=== PATIENT | male | born 1940 | race Caucasian/White ===

== ENCOUNTER 2018-02-17 22:13 | Emergency (ER) | payer MEDICARE, OTHER ==
--- NOTE | 2018-02-17 22:36 | Emergency Department Record ---
History of Present Illness - General Chief complaint: Extremity Problem Stated complaint: RT RING FINGER PAIN Time Seen by Provider: 02/17/18 22:33 Source: Patient Mode of Arrival: Ambulatory - History of Present Illness Initial comments: Patient jammed his right ring finger when he tripped on a boat. He denies other injury. MD Complaint: Extremity pain Onset/Timin -: Hour(s) Location: Right Radiation: Distal Quality: Aching Consistency: Constant Improves with: Immobilization Worsens with: Palpation Associated Symptoms: Denies other symptoms - Related Data Home Medications Medication Instructions Recorded Confirmed Last Taken Finasteride [Propecia] 1 mg PO DAILY 02/17/18 02/17/18 Unknown Lansoprazole [Prevacid] 30 mg PO DAILY 02/17/18 02/17/18 Unknown Lisinopril [Zestril] 5 mg PO DAILY 02/17/18 02/17/18 Unknown Multivitamin [Multi-Vitamin Daily] 1 each PO DAILY 02/17/18 02/17/18 Unknown Pollock-3/Dha/Epa/Fish Oil [Fish Oil 1 each PO DAILY 02/17/18 02/17/18 Unknown 500 mg Softgel] Allergies Allergy/AdvReac Type Severity Reaction Status Date / Time No Known Drug Allergies Allergy Verified 02/17/18 22:20 Travel Screening - Travel/Exposure Within Last 30 Days Have you traveled within the last 30 days?: No Review of Systems Reviewed: No additional complaints except as noted below Constitutional: Reports: As per HPI. Denies: Chills, Fever, Malaise, Night sweats, Weakness, Weight change Eyes: Reports: As per HPI. Denies: Eye discharge, Eye pain, Photophobia, Vision change ENT: Reports: As per HPI. Denies: Congestion, Dental pain, Ear pain, Epistaxis , Hearing loss, Throat pain Respiratory: Reports: As per HPI. Denies: Cough, Dyspnea, Hemoptysis, Stridor, Wheezes Cardiovascular: Reports: As per HPI. Denies: Arrhythmia, Chest pain, Dyspnea on exertion, Edema, Murmurs, Orthopnea, Palpitations, Paroxysmal nocturnal dyspnea, Rheumatic Fever, Syncope Endocrine: Reports: As per HPI. Denies: Fatigue, Heat or cold intolerance, Polydipsia, Polyuria Gastrointestinal: Reports: As per HPI. Denies: Abdominal pain, Constipation, Diarrhea, Hematemesis, Hematochezia, Melena, Nausea, Vomiting Genitourinary: Reports: As per HPI. Denies: Dysuria, Frequency, Hematuria, Incontinence, Retention, Testicular pain, Testicular mass, Urgency Musculoskeletal: Reports: As per HPI. Denies: Arthralgia, Back pain, Gout, Joint swelling, Myalgia, Neck pain Skin: Reports: As per HPI. Denies: Bruising, Change in color, Change in hair/ nails, Lesions, Pruritus, Rash Neurological: Reports: As per HPI. Denies: Abnormal gait, Confusion, Headache, Numbness, Paresthesias, Seizure, Tingling, Tremors, Vertigo, Weakness Psychiatric: Reports: As per HPI. Denies: Anxiety, Auditory hallucinations, Depression, Homicidal thoughts, Suicidal thoughts, Visual hallucinations Hematological/Lymphatic: Reports: As per HPI. Denies: Anemia, Blood Clots, Easy bleeding, Easy bruising, Swollen glands Past Medical History - SOCIAL HISTORY Smoking Status: Never smoker Alcohol Use: Occasional Drug Use: None - RESPIRATORY Hx Respiratory Disorders: No - CARDIOVASCULAR Hx Cardio Disorders: Yes Hx Hypertension: Yes Comment:: HLD - NEURO Hx Neuro Disorders: No - GI Hx GI Disorders: Yes Hx Reflux: Yes - Hx Genitourinary Disorders: Yes Hx Prostate Problems: Yes - ENDOCRINE Hx Endocrine Disorders: No - MUSCULOSKELETAL Hx Musculoskeletal Disorders: Yes - PSYCH Hx Psych Problems: No - HEMATOLOGY/ONCOLOGY Hx Hematology/Oncology Disorders: No Family Medical History Any Significant Family History?: No Family Hx Comment (NOT TO BE USED IN PLACE OF ITEMS BELOW): denies Physical Exam - General General Appearance: Alert, Oriented x3, Cooperative, No acute distress - Head Head exam: Normal inspection - Eye Eye exam: Normal appearance, PERRL Pupils: Normal accommodation - ENT ENT exam: Normal exam, Normal external ear exam Ear exam: Normal external inspection. negative: External canal tenderness Nasal Exam: Normal inspection. negative: Discharge, Sinus tenderness Mouth exam: Normal external inspection, Tongue normal Teeth exam: Normal inspection. negative: Dental caries Throat exam: Normal inspection. negative: Tonsillar erythema, Tonsillar exudate - Neck Neck exam: Normal inspection, Full ROM. negative: Tenderness - Respiratory Respiratory exam: Normal lung sounds bilaterally. negative: Respiratory distress - Cardiovascular Cardiovascular Exam: Regular rate, Normal rhythm - GI/Abdominal GI/Abdominal exam: Soft. negative: Tenderness - Rectal Rectal exam: Deferred - exam: Deferred - Extremities Extremities exam: Normal inspection, Full ROM, Normal capillary refill, Tenderness (right ring finger with possible dislocation at PIP.) - Back Back exam: Reports: Normal inspection, Full ROM. Denies: Muscle spasm, Rash noted, Tenderness - Neurological Neurological exam: Alert, Normal gait, Oriented X3, Reflexes normal - Psychiatric Psychiatric exam: Normal affect, Normal mood - Skin Skin exam: Dry, Intact, Normal color, Warm Course Vital Signs 02/17/18 22:21 Temperature 97.8 F Pulse Rate [ 71 Pulse Ox Probe] Respiratory 24 Rate Blood Pressure 137/86 [Left Arm] Pulse Ox 99 - Reevaluation(s) Reevaluation #1: Patient declined tylenol or ibuprofen. 02/17/18 22:35 Reevaluation #2: 02/17/18 23:09 PROCEDURE; In line traction easily reduced the 4th digit PIP dislocation. Patient tolerated well. Sent to xray for post reduction film. Carlos taped and discharged home with PCP follow up. Medical Decision Making - Data Complexity MDM Data: X-Ray Ordered and/or Reviewed (Initial xray shows dislocation of PIP of 4th digit, no fractures seen; Post reduction confirms, no fx seen. Per ED physician.) Disposition Disposition: Discharge Clinical Impression: Dislocated finger Qualifiers: Encounter type: initial encounter Qualified Code(s): S63.259A - Unspecified dislocation of unspecified finger, initial encounter Disposition: Home, Self-Care Condition: (1) Good Instructions: Finger Dislocation (ED) Additional Instructions: Carlos tape 5-7 days. Tylenol or ibuprofen as directed as needed for pain. Ice. Elevate first 48 hours. Follow up with your PCP 5-7 days. No use of right hand 5 days. Forms: Patient Portal Access Quality - Quality Measures Quality Measures: N/A - Blood Pressure Screening Does Patient Have Any of the Following: No Blood Pressure Classification: Pre-Hypertensive BP Reading Systolic Measurement: 137 Diastolic Measurement: 86 Screening for High Blood Pressure: Patient Exclusion, Hx of HTN [[id number]]
--- NOTE | 2018-02-19 13:44 | RADIOLOGY REPORT ---
EXAM: RIGHT HAND HISTORY: JAMMED RING FINGER OF HAND WHEN FELL AGAINST A BOAT. TECHNIQUE: Three views of the right hand were obtained. Comparison: None. Encounter: Initial. FINDINGS: There is a dislocation at the PIP joint of the fourth finger with the middle phalanx dislocated posteriorly and is slightly in an ulnar direction compared with the proximal phalanx. Faint round calcification just anterior to the base of the middle phalanx on the lateral view is not well seen on the other views and with its round configuration seems a bit atypical for a small associated fracture fragment and is probably chronic in nature. No other fracture or dislocation of the right hand evident. There is advanced degenerative arthritis at several of the IP joints, particularly the DIP joints as well as the IP joint of the thumb. Some degenerative arthritis at the first CMC articulation along the radial aspect of the wrist distally as well. IMPRESSION: 1. DISLOCATION AT THE PIP JOINT OF THE FOURTH FINGER. 2. DEGENERATIVE ARTHRITIS AT SEVERAL OF THE IP JOINTS WELL THE FIRST CMC ARTICULATION OF THE WRIST. JOB NUMBER: [id number] MTDD
--- NOTE | 2018-02-19 13:47 | RADIOLOGY REPORT ---
EXAM: RIGHT FOURTH FINGER HISTORY: POST REDUCTION EVALUATION. TECHNIQUE: Three views of the right fourth finger were obtained. Comparison: Right hand series from earlier the same evening on 02/17/18. Encounter: Initial. FINDINGS: Since the earlier exam the dislocation previously seen at the PIP joint of the fourth finger has been reduced. No associated fracture is seen although the anterior aspect of the DIP joint is obscured on the lateral view by overlapping fingers. Mild soft tissue swelling involving the proximal aspect of the fourth finger and some degenerative arthritis at the IP joints. IMPRESSION: REDUCTION OF THE PREVIOUSLY SEEN DISLOCATION AT THE PIP JOINT OF THE FOURTH FINGER. JOB NUMBER: [id number] [facility]
== END 2018-02-17 23:45 | disposition home or self-care (01) ==
LOC: ER 22:13
DX: S63.280A Dislocation of proximal interphalangeal joint of right index finger, initial encounter (principal); W23.1XXA Caught, crushed, jammed, or pinched between stationary objects, initial encounter; I10 Essential (primary) hypertension
CPT/HCPCS: 26770; 73140; 99283